=== PATIENT | male | born 1945 | race Caucasian/White ===

== ENCOUNTER 2018-10-25 11:45 | Outpatient (CLI) | payer MEDICARE ==
--- NOTE | 2018-10-25 13:09 | RAD ---
RIGHT SHOULDER THERE VIEWS: History: Chronic pain for months without trauma. 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 POS: [facility]
== END 2018-10-25 11:46 | disposition home or self-care (01) ==
LOC: MADRAD 11:45
PROVIDERS: ATTEND Obstetrics & Gynecology
DX: M25.511 Pain in right shoulder (principal); M19.011 Primary osteoarthritis, right shoulder